=== PATIENT | female | born 1970 | race Caucasian/White ===

== ENCOUNTER 2016-06-16 18:47 | Inpatient (IN) ==
[2016-06-16] MEDS ORDERED: methylPREDNISolone 125 MG/2 ML VIAL IV ONE (20:00)
[2016-06-16] MEDS ORDERED: Ipratropium/Albuterol Neb 3 ML IH ONE (20:00)
--- NOTE | 2016-06-16 20:03 | Emergency Department Note ---
Disposition Clinical Impression: Acute exacerbation of chronic obstructive airways disease Respiratory failure with hypoxia Qualifiers: Chronicity: acute Qualified Code(s): J96.01 - Acute respiratory failure with hypoxia Disposition: Admitted As Inpatient Condition: Good Referrals: Nhi Sexton CNP [Primary Care Provider] - Forms: ED Satisfaction Letter URI/Sore Throat HPI - General Chief Complaint: ED Shortness of Breath/Dyspnea Stated Complaint: JONATHNO Time Seen by Provider: 06/16/16 19:37 Source: patient Limitations: no limitations Nursing Notes Reviewed: Yes Vital Signs Reviewed: Yes - History of Present Illness Pt Subjective Complaint: cough Onset (ago): day(s) (4) Duration: constant, gradually worsening Severity: mild Improves with: other (Inhaler) Worsens with: exertion If sputum, description: clear (Cough) Associated symptoms: Reports: nasal congestion, shortness of breath. Denies: fever, chills Treatments prior to arrival: other healthcare encounter for this problem - Related Data Previous Rx's Medication Instructions Recorded HydrOXYzine Pamoate [Vistaril] 25 mg PO Q6HR PRN #20 capsule 10/27/15 HYDROcodone/Acet 5/325 mg [[place] 1 tab PO Q6H PRN #8 tab 02/09/16 5-325 mg] Allergies Allergy/AdvReac Type Severity Reaction Status Date / Time Enoxaparin [From Lovenox] Allergy Hives Verified 06/16/16 19:32 Varenicline [From Chantix] AdvReac Hallucinati Verified 06/16/16 19:32 ng All systems ED: reviewed and negative except as stated. Constitutional: Denies: fever, chills, weakness Cardiovascular: Denies: palpitations Gastrointestinal: Denies: nausea, vomiting URI PMH - Past Medical History Medical history: Reports: COPD, fibromyalgia, other Psychiatric history: Reports: anxiety, depression - Social History Smoking Status: Current every day smoker Alcohol use: Reports: rarely Drug use: Reports: marijuana Physical Exam - General Limitations: no limitations General appearance: alert - Head Head exam: atraumatic, normocephalic, normal inspection - Eye Eye exam: Present: normal appearance, PERRL, EOMI - Expanded Eye Exam Pupils: Left: reactive - ENT ENT exam: normal exam, normal oropharynx, mucous membranes moist - Expanded ENT Exam External ear exam: Present: normal external inspection Mouth exam: Present: normal external inspection Teeth exam: Present: normal inspection Throat exam: Present: normal inspection - Neck Neck exam: Present: normal inspection, full ROM, trachea midline - Chest Chest inspection: Present: normal inspection, symmetric chest wall rise - Respiratory Respiratory exam: Present: wheezes, prolonged expiratory phase. Absent: respiratory distress - Cardiovascular Cardiovascular exam: Present: regular rate, normal rhythm, normal heart sounds - Abdominal Exam Abdominal exam: Present: soft, Non-Tender. Absent: tenderness, distention, guarding, rebound, rigidity - Extremities Exam Extremities exam: Present: normal inspection, full ROM. Absent: tenderness, pedal edema - Expanded Upper Extremity Exam Shoulder exam: Present: normal inspection, full ROM Arm exam: Present: normal inspection, full ROM Elbow exam: Present: normal inspection, full ROM Forearm/Wrist exam: Present: normal inspection, full ROM Hand exam: Present: normal inspection, full ROM Vascular exam: Normal: capillary refill, radial pulse - Expanded Lower Extremity Exam Hip/Pelvis exam: Present: normal inspection, full ROM Upper leg exam: Present: normal inspection, full ROM Knee exam: Present: normal inspection, full ROM Lower leg exam: Present: normal inspection, full ROM Ankle exam: Present: normal inspection, full ROM Foot/toe exam: Present: normal inspection, full ROM Neurovascular/Tendon exam: Absent: motor deficit, sensory deficit, tendon deficit - Back Exam Back exam: Present: normal inspection, full ROM. Absent: tenderness - Neurological Exam Neurological exam: Present: alert, oriented X3 - Expanded Neurological Exam Patient oriented to: Present: person, place, time Coma Scale Eye Opening: Spontaneous Coma Scale Motor Response: Obeys Commands Coma Scale Verbal Response: Oriented Coma Scale Total: 15 - Psychiatric Psychiatric exam: Present: normal affect, normal mood - Skin Skin exam: Present: warm, dry, intact, normal color Course Vital Signs Temperature 100.2 F H 06/16/16 19:33 Pulse Rate 103 06/16/16 19:33 Respiratory Rate 20 06/16/16 19:33 Blood Pressure 110/66 06/16/16 19:33 O2 Sat by Pulse Oximetry 94 L 06/16/16 19:33 Temperature 100.2 F H 06/16/16 19:33 Pulse Rate 103 06/16/16 19:33 Respiratory Rate 20 06/16/16 20:16 Blood Pressure 110/66 06/16/16 19:33 O2 Sat by Pulse Oximetry 92 L 06/16/16 20:16 Oxygen Delivery Oxygen Delivery Room Air Upper Respiratory Infection - MDM Narrative Medical decision making narrative: After 2 DuoNeb this patient still hypoxic on room air 88% she does not feel well enough to go home we will admit her to the hospitalist service - Differential Diagnosis Differential Diagnosis: Likely: upper respiratory infection, otitis media, sinusitis, bronchitis, influenza, pharyngitis, pneumonia - Medical Records Medical records reviewed: Yes I reviewed the patient's medical records. - Lab Data Lab results reviewed: Yes I reviewed the patient's lab results. Result diagrams: 06/16/16 20:14 06/16/16 20:14 Lab Results 06/16/16 06/16/16 06/16/16 Range/Units 20:14 20:14 20:14 WBC 7.8 (4.3-11.1) K/mcL RBC 4.87 (3.82-4.97) M/mcL Hgb 11.7 (11.5-15.4) g/dL Hct 38.1 (35.3-44.9) % MCV 78.2 L (83.0-100.0) fL MCH 24.0 L (28.0-33.3) pg MCHC 30.7 L (31.6-35.5) g/dL RDW 24.3 H (11.5-14.5) % Plt Count 240 (140-400) K/mcL MPV 9.7 (9.4-12.4) fL Immature Gran % 0.5 (0-4) % Seg Neutrophils % 58.0 % Lymphocytes % 29.8 % Monocytes % 10.3 % Eosinophils % 1.0 % Basophils % 0.4 % Neutrophils # 4.5 (1.6-8.9) K/mcL Lymphocytes # 2.3 (0.6-4.6) K/mcL Monocytes # 0.8 (0.0-1.3) K/mcL Eosinophils # 0.1 (0.0-0.6) K/mcL Basophils # 0.0 (0.0-0.2) K/mcL Platelet Estimate Normal (Normal) Anisocytosis 2+ A (Not Present) Sodium 135 L (136-145) mEq/L Potassium 4.1 (3.5-4.5) mEq/L Chloride 101 (98-109) mEq/L Carbon Dioxide 24 (19-29) mEq/L BUN 13 (7-20) mg/dL Creatinine 0.68 (0.57-1.11) mg/dL Est GFR ( Amer) > 60 (> 60) Est GFR (Non-Af Amer) > 60 (> 60) BUN/Creatinine Ratio 19 (6-26) Glucose 91 (70-99) mg/dL Calculated Osmolality 280 (280-300) Calcium 8.8 (8.6-10.8) mg/dL Troponin I 0.00 (0-0.03) ng/mL B-Natriuretic Peptide (0-100) pg/mL 06/16/16 Range/Units 20:14 WBC (4.3-11.1) K/mcL RBC (3.82-4.97) M/mcL Hgb (11.5-15.4) g/dL Hct (35.3-44.9) % MCV (83.0-100.0) fL MCH (28.0-33.3) pg MCHC (31.6-35.5) g/dL RDW (11.5-14.5) % Plt Count (140-400) K/mcL MPV (9.4-12.4) fL Immature Gran % (0-4) % Seg Neutrophils % % Lymphocytes % % Monocytes % % Eosinophils % % Basophils % % Neutrophils # (1.6-8.9) K/mcL Lymphocytes # (0.6-4.6) K/mcL Monocytes # (0.0-1.3) K/mcL Eosinophils # (0.0-0.6) K/mcL Basophils # (0.0-0.2) K/mcL Platelet Estimate (Normal) Anisocytosis (Not Present) Sodium (136-145) mEq/L Potassium (3.5-4.5) mEq/L Chloride (98-109) mEq/L Carbon Dioxide (19-29) mEq/L BUN (7-20) mg/dL Creatinine (0.57-1.11) mg/dL Est GFR ( Amer) (> 60) Est GFR (Non-Af Amer) (> 60) BUN/Creatinine Ratio (6-26) Glucose (70-99) mg/dL Calculated Osmolality (280-300) Calcium (8.6-10.8) mg/dL Troponin I (0-0.03) ng/mL B-Natriuretic Peptide < 10 (0-100) pg/mL - Radiology Data Radiology results reviewed: Yes I reviewed the patient's radiology results. Critical Care Time Critical Care Time: Yes Total Critical Care Time: 35 Attestation: Critical care performed: Time is exclusive of separately billable procedures. Time includes: direct patient care, patient reassessment, coordination of patient care, interpretation of data (laboratory data, radiology data, and respiratory data), review of patient's medical records, medical consultation and documentation of patient care. Procedures included in critical care time: Procedures excluded from critical care time:
[2016-06-16 20:20] LABS: Basophils % 0.4 %; Eosinophils # 0.1 K/mcL (0.0-0.6); Hematocrit 38.1 % (35.3-44.9); Hemoglobin 11.7 g/dL (11.5-15.4); Immature Granulocytes % 0.5 % (0-4); Lymphocytes # 2.3 K/mcL (0.6-4.6); Lymphocytes % 29.8 %; Mean Corpuscular HGB Conc 30.7 g/dL (31.6-35.5); Mean Corpuscular Volume 78.2 fL (83.0-100.0); Mean Platelet Volume 9.7 fL (9.4-12.4); Monocytes # 0.8 K/mcL (0.0-1.3); Monocytes % 10.3 %; Neutrophils # 4.5 K/mcL (1.6-8.9); Platelet Count 240 K/mcL (140-400); Red Blood Count 4.87 M/mcL (3.82-4.97); Red Cell Distribution Width 24.3 % (11.5-14.5)
[2016-06-16 20:32] LABS: BUN/Creatinine Ratio 19 (6-26); Blood Urea Nitrogen 13 mg/dL (7-20); Calcium 8.8 mg/dL (8.6-10.8); Carbon Dioxide 24 mEq/L (19-29); Chloride 101 mEq/L (98-109); Glucose 91 mg/dL (70-99); Osmolality,Calculated 280 (280-300); Potassium 4.1 mEq/L (3.5-4.5); Sodium 135 mEq/L (136-145); eGFR For African Americans > 60 (> 60); eGFR For Non-African Americans > 60 (> 60)
[2016-06-16 20:47] LABS: Anisocytosis 2+ (Not Present); Platelet Estimate Normal (Normal)
[2016-06-16] MEDS ORDERED: Levofloxacin 750 MG/150 ML 750 MG/150 ML BAG IVPB ONE (21:10)
[2016-06-17] MEDS ORDERED: Acetaminophen 325 MG TABLET PO PRN (00:13)
[2016-06-17] MEDS ORDERED: Ondansetron ODT 4 MG TAB.RAPDIS SL PRN (00:13)
[2016-06-17] MEDS ORDERED: Naloxone 0.4 MG/ML INJ IVP PRN (00:13)
[2016-06-17] MEDS ORDERED: Ipratropium/Albuterol Neb 3 ML IH PRN (00:16)
--- NOTE | 2016-06-17 00:26 | Internal Med History&Physical ---
<Lily Timmons - Last Filed: 06/17/16 01:23> Date of Encounter: 06/17/16 Time of Encounter: 00:40 Assessment and Plan (1) Acute exacerbation of chronic obstructive airways disease Current visit: Yes Status: Acute duonebs IV steroids IV antibiotics supplemental O2 (2) Respiratory failure with hypoxia Current visit: Yes Status: Acute patient does not use supplemental home oxygen Qualifiers: Chronicity: acute Qualified Code(s): J96.01 - Acute respiratory failure with hypoxia (3) Tobacco abuse, in remission Current visit: Yes Status: Acute quit smoking at the end of April (states has not smoked this month) 21 mg nicotine patch (4) Anxiety Current visit: Yes Status: Acute continue home medications (5) Depression Current visit: Yes Status: Acute continue home medications Qualifiers: Depression Type: unspecified Qualified Code(s): F32.9 - Major depressive disorder, single episode, unspecified Internal Medicine - H&P: HPI Chief complaint: shortness of breath Admitted From: Emergency Dept Plans for Post Hospital Care: Home History of present illness: Ms. Duenas is a 45 year old female past medical history anxiety, depression, fibromyalgia, and COPD who presents with a three-day history of increasing shortness of breath. She had a nonproductive cough, chest tightness/pain, and coughing to the point of blacking out/syncope. She also admits to increased fatigue, dyspnea, anorexia/nausea/upset stomach, sore throat, and polyuria. She recently quit smoking the beginning of May: she currently is using the 21 mg nicotine patch. Past Med Surg Social Fam HX - Past Medical History Medical history: COPD, fibromyalgia, other (osteopenia) Psychiatric history: anxiety, depression - Past Surgical History Surgical History: hysterectomy, knee replacement (bilateral), orthopedic, other (right arm), other (discectomy) - Social History Smoking Status: Former smoker (very recent quit (< 1 month ago)) Smokeless Tobacco Status: No Alcohol use: rarely Drug use: marijuana Internal Medicine - H&P: Meds Albuterol Sulfate [Ventolin Hfa] 2 puff IH Q4-6H PRN 06/16/16 [History] Budesonide/Formoterol 160/4.5 [Symbicort 160/4.5] 2 puff IH BIDR 06/16/16 [ History] Cholecalciferol (D-3) [Vitamin D] 2,000 unit PO DAILY 06/16/16 [History] ClonazePAM [Klonopin] 1 mg PO TID PRN 06/16/16 [History] Dexlansoprazole [Dexilant] 60 mg PO DAILY 06/16/16 [History] Dicyclomine [Bentyl] 40 mg PO QID 06/16/16 [History] Ibuprofen [Motrin] 400 mg PO Q6H PRN 06/16/16 [History] Ipratropium/Albuterol Neb [Duoneb] 3 ml IH Q6H PRN 06/16/16 [History] Magnesium Oxide [Mag-Ox] 400 mg PO BID 06/16/16 [History] Methocarbamol [Robaxin] 1,000 mg PO QID PRN 06/16/16 [History] Nicotine Patch [Nicoderm] 21 mg TD DAILY 06/16/16 [History] Oxcarbazepine 300 mg PO QAM 06/16/16 [History] Oxcarbazepine 600 mg PO HS 06/16/16 [History] Pregabalin [Lyrica] 75 mg PO BID 06/16/16 [History] Trazodone HCl 50 mg PO HS PRN 06/16/16 [History] Venlafaxine HCl [Venlafaxine HCl ER] 75 mg PO DAILY 06/16/16 [History] Ferrous Sulfate 325 mg PO BID 06/17/16 [History] Allergies Enoxaparin [From Lovenox] Allergy (Verified 06/16/16 19:32) Hives Varenicline [From Chantix] Adverse Reaction (Verified 06/16/16 19:32) Hallucinating All Systems PM: A 10-system review of systems was performed and is negative for pertinent findings except as documented above in the HPI. - Constitutional Constitutional: fatigue, lethargy, no chills, no fever(s), no night sweats - EENT Eyes: blurry vision (x months), no change in vision, no discharge, no pain, no photophobia Ears: no ear discharge, no ear pain, no tinnitus Nose, mouth and throat: nasal congestion, sore throat, no dysphagia, no nasal discharge, no neck pain - Cardiovascular Cardiovascular ROS IM: chest pain (/chest tightness), syncope, no diaphoresis, no dyspnea, no lightheadedness, no palpitations - Respiratory Respiratory: cough, dyspnea, dyspnea on exertion, wheezing, no excessive phlegm production - Gastrointestinal Gastrointestinal: abdominal pain, other (upset stomach), no diarrhea, no hematemesis, no hematochezia, no melena, no nausea, no vomiting - Genitourinary Genitourinary: nocturia, urinary frequency, no change in urinary stream, no dysuria, no flank pain, no hematuria - Musculoskeletal Musculoskeletal ROS IM: muscle cramps, muscle weakness, no numbness, no tingling - Integumentary Integumentary IM: no rash, no unusual bruising - Neurological Neurological ROS: no confusion, no convulsions, no focal weakness, no numbness, no tingling, no tremor(s) - Psychiatric Psychiatric: anxiety ( chronic), depression (chronic), memory loss (chronic), mood swings (chronic), panic attacks (chronic) - Hematologic/Lymphatic Hematologic/Lymphatic: no easy bruising - Constitutional Vitals: Temp Pulse Resp BP Pulse Ox 97.8 F 98 18 116/68 94 L 06/16/16 23:34 06/16/16 23:34 06/16/16 23:34 06/16/16 23:34 06/16/16 23:34 General appearance: Present: A&O X 3, no acute distress, answers questions appropriately - Head Head exam: Present: atraumatic, normocephalic - Eye Eye exam: Present: PERRL, conjuntiva pink, sclera anicteric Pupils: Present: PERRL - Neck Neck exam general surgery: Present: supple, trachea midline. Absent: lymphadenopathy - Respiratory Respiratory exam: Present: decreased breath sounds (lungs sound tight), prolonged expiratory phase, wheezes (end expiratory wheezes throughout). Absent : accessory muscle use, rales, rhonchi - Cardiovascular Cardiovascular exam: Present: RRR, +S1, +S2. Absent: diastolic murmur, gallop, rubs, systolic murmur - GI/Abdominal GI/Abdominal exam: Present: normal bowel sounds, soft, no peritoneal signs. Absent: distended, tenderness - Extremities Exam Extremities exam: Present: warm, radial pulses palpable and symetrical. Absent : calf tenderness, cyanotic, pedal edema - Neurological Exam Neurological exam: Present: CN II-XII intact, oriented X3, no focal deficits. Absent: pronater drift, facial droop, speech deficit - Skin Skin exam: Present: dry, intact Internal Med - H&P Results - Labs CBC & Chem 7: 06/16/16 20:14 06/16/16 20:14 <Brigette Sanchez Braden - Last Filed: 06/17/16 04:23> Date of Encounter: 06/17/16 Internal Medicine - H&P: HPI History of present illness: Ms. Duenas is a 45 year old female All Systems PM: A 10-system review of systems was performed and is negative for pertinent findings except as documented above in the HPI. - Constitutional Vitals: Temp Pulse Resp BP Pulse Ox 97.8 F 98 18 116/68 92 L 06/16/16 23:34 06/16/16 23:34 06/17/16 00:40 06/16/16 23:34 06/17/16 00:40 Internal Med - H&P Results - Labs CBC & Chem 7: 06/16/16 20:14 06/16/16 20:14 - Attending Attestation I performed a history and physical examination of the patient and discussed his management with the Resident/Ragman (Dr Timmons). I reviewed the residents note and agree with the documented findings and plan of care, with additions as below. 45-year-old female with a past medical history significant for COPD presents with a 2 day history of shortness of breath. She has saturations about 88% on room air in the emergency department. She reports that there is black moulds and she thinks there is problem with the duct, where she need to change the filters every 2 weeks. Apparently her land-lord was not willing to fix the problem. She thinks that if she is at her brothers house in [place] she feels better. After coming to her home, within 2 to 3 days she feels sick. O/E: Occasional bilateral wheeze present. CXR showed no acute abnormality. A/P: - Acute exacerbation of COPD: Continue with bronchodilators, levofloxacin, Solu-Medrol, Mucinex. May need f/u with pulmonary physician for lung function test and possible pulmonary rehab. - Acute respiratory failure: Secondary to acute exacerbation of COPD. Continue supplemental oxygen. She will need resting and walking pulse ox prior to discharge.
[2016-06-17] MEDS: Ipratropium/Albuterol Neb 3 ML IH SCH ×5 (00:40→21:03)
[2016-06-17] MEDS: OXcarbazepine 150 MG TABLET PO SCH ×3 (01:19→21:05)
[2016-06-17] MEDS: Pregabalin 75 MG CAPSULE PO SCH ×3 (01:19→21:06)
[2016-06-17] MEDS: traZODone 50 MG TABLET PO PRN (01:20)
[2016-06-17] MEDS: Methocarbamol 500 MG TABLET PO PRN (01:20)
[2016-06-17] MEDS: methylPREDNISolone 125 MG/2 ML VIAL IVP SCH ×2 (06:49→17:44)
[2016-06-17] MEDS: *HR* Heparin 5,000 UNIT/ML VIAL SQ SCH ×2 (06:49→17:43)
[2016-06-17] MEDS: Nicotine 21 MG PATCH.TD24 TD SCH (09:27)
[2016-06-17] MEDS: Venlafaxine XR (24 HR) 75 MG CAP.ER.24H PO SCH (09:28)
[2016-06-17] MEDS: Magnesium Oxide 400 MG TABLET PO SCH ×2 (09:28→21:06)
[2016-06-17] MEDS: clonazePAM 1 MG TABLET PO PRN ×2 (09:34→21:05)
[2016-06-17] MEDS: Budesonide/Formoterol 160/4.5 MDI IH SCH ×3 (10:05→21:33)
[2016-06-17] MEDS: *HR* HYDROcodone/Acet 5/325 mg TABLET PO PRN ×2 (13:15→21:10)
--- NOTE | 2016-06-17 18:36 | Event Note ---
Date of Encounter: 06/17/16 Time of Encounter: 18:00 45 y/o female admitted during the night for acute exac COPD. She is doing OK at this time. No acute issues. Plan Continue IV abx, steroids, supportive care.
[2016-06-17] MEDS ORDERED: Levofloxacin 750 MG/150 ML 750 MG/150 ML BAG IVPB SCH (21:00)
[2016-06-17] MEDS: levoFLOXacin 750 MG TABLET PO SCH (21:06)
[2016-06-17] MEDS ORDERED: Nicotine 21 MG PATCH.TD24 TD ONE (23:50)
[2016-06-18] MEDS: Ipratropium/Albuterol Neb 3 ML IH SCH ×4 (04:23→21:25)
[2016-06-18] MEDS: *HR* HYDROcodone/Acet 5/325 mg TABLET PO PRN ×3 (04:36→22:13)
[2016-06-18] MEDS: methylPREDNISolone 125 MG/2 ML VIAL IVP SCH (06:40)
[2016-06-18] MEDS: *HR* Heparin 5,000 UNIT/ML VIAL SQ SCH ×2 (06:41→19:05)
[2016-06-18] MEDS: Pregabalin 75 MG CAPSULE PO SCH ×2 (09:19→21:57)
[2016-06-18] MEDS: Venlafaxine XR (24 HR) 75 MG CAP.ER.24H PO SCH (09:19)
[2016-06-18] MEDS: Magnesium Oxide 400 MG TABLET PO SCH ×2 (09:19→21:57)
[2016-06-18] MEDS: OXcarbazepine 150 MG TABLET PO SCH ×2 (09:19→21:56)
[2016-06-18] MEDS: Nicotine 21 MG PATCH.TD24 TD SCH (09:20)
[2016-06-18] MEDS: clonazePAM 1 MG TABLET PO PRN ×2 (09:28→14:15)
[2016-06-18] MEDS: Budesonide/Formoterol 160/4.5 MDI IH SCH ×2 (09:38→21:25)
[2016-06-18] MEDS: MethylPREDNISolone 40 MG/ML VIAL IVP SCH ×2 (14:23→19:05)
--- NOTE | 2016-06-18 18:19 | Internal Med Progress Note ---
Date of Encounter: 06/18/16 Time of Encounter: 12:45 - Assessment and plan (1) Respiratory failure with hypoxia Current Visit: Yes Status: Acute Assessment and plan: Hypoxia is persisting at this time. Will wean oxygen as able. Qualifiers: Chronicity: acute Qualified Code(s): J96.01 - Acute respiratory failure with hypoxia (2) Acute exacerbation of chronic obstructive airways disease Current Visit: Yes Status: Acute Assessment and plan: Currently on aerosols, abx and steroids. Add Mucinex and changing steroids to q6h. (3) Anxiety Current Visit: Yes Status: Acute Assessment and plan: Supportive care. She takes PRN Clonazepam. (4) Depression Current Visit: Yes Status: Chronic Assessment and plan: Continue home meds. Qualifiers: Depression Type: unspecified Qualified Code(s): F32.9 - Major depressive disorder, single episode, unspecified (5) Tobacco abuse, in remission Current Visit: Yes Status: Acute Assessment and plan: Supportive care. (6) Obesity (BMI 30.0-34.9) Current Visit: Yes Status: Acute - Subjective Interval history: Ms. Duenas is currently admitted for acute exac COPD and hypoxemia. She remains moderate to high risk due to persistent respiratory symptoms and potential for worsening respiratory failure. Ms. Duenas is still having a lot of dyspnea. She is having some discomfort in her chest with coughing. No fever or chills. Using aerosols and steroids but feels like things are not improving. Very anxious and feels stressed as well. Concerned about her house and air quality. - Constitutional Vitals: Temp Pulse Resp BP Pulse Ox 98.2 F 85 18 106/66 92 L 06/18/16 15:02 06/18/16 15:02 06/18/16 16:02 06/18/16 15:02 06/18/16 16:02 General appearance: Present: A&O X 3, no acute distress, answers questions appropriately - Head Head exam: Present: normocephalic - Eye Eye exam: Present: EOMI, conjuntiva pink - ENT ENT exam: Present: mucous membranes dry - Respiratory Respiratory exam: Present: rales. Absent: rhonchi, wheezes Additional comments: Rales noted in R base. - Cardiovascular Cardiovascular exam: Present: RRR. Absent: systolic murmur, tachycardia - GI/Abdominal GI/Abdominal exam: Present: normal bowel sounds, soft. Absent: tenderness - Extremities Exam Extremities exam: Present: warm. Absent: pedal edema, tenderness - Neurological Exam Neurological exam: Present: alert, oriented X3, no focal deficits - Psychiatric Psychiatric exam: Present: depressed - Skin Skin exam: Present: dry, warm. Absent: rash Internal Medicine: Result - Labs CBC & Chem 7: 06/16/16 20:14 06/16/16 20:14 Consult Discharge Plan - Plan Referrals: Nhi Sexton CNP [Primary Care Provider] -
[2016-06-18] MEDS: Methocarbamol 500 MG TABLET PO PRN (19:05)
[2016-06-18] MEDS: levoFLOXacin 750 MG TABLET PO SCH (21:57)
[2016-06-19] MEDS: MethylPREDNISolone 40 MG/ML VIAL IVP SCH ×4 (01:46→19:50)
[2016-06-19] MEDS: *HR* Morphine 2 MG/ML SYRINGE IVP PRN ×6 (02:11→19:48)
[2016-06-19] MEDS: Ipratropium/Albuterol Neb 3 ML IH SCH ×4 (03:53→23:44)
[2016-06-19] MEDS: *HR* HYDROcodone/Acet 5/325 mg TABLET PO PRN ×3 (04:14→17:59)
[2016-06-19 05:29] LABS: Hematocrit 39.3 % (35.3-44.9); Hemoglobin 12.2 g/dL (11.5-15.4); Mean Corpuscular Hemoglobin 24.8 pg (28.0-33.3); Mean Platelet Volume 10.3 fL (9.4-12.4); Platelet Count 253 K/mcL (140-400); Red Blood Count 4.91 M/mcL (3.82-4.97); Red Cell Distribution Width 24.5 % (11.5-14.5)
[2016-06-19 05:46] LABS: BUN/Creatinine Ratio 29 (6-26); Blood Urea Nitrogen 20 mg/dL (7-20); Calcium 9.6 mg/dL (8.6-10.8); Carbon Dioxide 26 mEq/L (19-29); Chloride 100 mEq/L (98-109); Glucose 117 mg/dL (70-99); Magnesium 2.4 mg/dL (1.6-2.6); Osmolality,Calculated 292 (280-300); Potassium 4.2 mEq/L (3.5-4.5); Sodium 139 mEq/L (136-145); eGFR For African Americans > 60 (> 60); eGFR For Non-African Americans > 60 (> 60)
[2016-06-19] MEDS: *HR* Heparin 5,000 UNIT/ML VIAL SQ SCH ×2 (06:49→17:59)
--- NOTE | 2016-06-19 06:54 | Electrocardiograph Report ---
[place] [id number] Test Date: 2016-06-16 Pat Name: Josette Duenas Department: 104 Room: 3B Gender: F Public Health Inspector: : 1970 Requested By: Pacheco Escobedo Order Number: [id number] Reading MD: Maycol Hernandez MD Measurements Intervals [place] Rate: 94 P: 56 [place]: 141 QRS: 53 QRSD: 91 T: 47 QT: 330 QTc: 382 Interpretive Statements SINUS RHYTHM Electronically Signed On 06-19-2016 6:52:23 EST by Maycol Hernandez MD
[2016-06-19] MEDS: clonazePAM 1 MG TABLET PO PRN ×2 (07:29→18:06)
[2016-06-19] MEDS: Venlafaxine XR (24 HR) 75 MG CAP.ER.24H PO SCH (08:16)
[2016-06-19] MEDS: OXcarbazepine 150 MG TABLET PO SCH ×2 (08:16→19:49)
[2016-06-19] MEDS: Nicotine 21 MG PATCH.TD24 TD SCH (08:17)
[2016-06-19] MEDS: Magnesium Oxide 400 MG TABLET PO SCH ×2 (08:17→19:50)
[2016-06-19] MEDS: Pregabalin 75 MG CAPSULE PO SCH ×2 (08:17→19:49)
[2016-06-19] MEDS: Budesonide/Formoterol 160/4.5 MDI IH SCH ×2 (10:44→23:44)
--- NOTE | 2016-06-19 19:48 | Internal Med Progress Note ---
Date of Encounter: 06/19/16 Time of Encounter: 14:30 - Assessment and plan (1) Abdominal pain Current Visit: Yes Status: Acute Assessment and plan: Appears to be muscular - worse with coughing. PRN meds. Qualifiers: Abdominal location: right lower quadrant Qualified Code(s): R10.31 - Right lower quadrant pain (2) Respiratory failure with hypoxia Current Visit: Yes Status: Acute Assessment and plan: Starting to improve overall though slowly. Wean oxygen as able. Qualifiers: Chronicity: acute Qualified Code(s): J96.01 - Acute respiratory failure with hypoxia (3) Acute exacerbation of chronic obstructive airways disease Current Visit: Yes Status: Acute Assessment and plan: Currently on aerosols, abx and steroids. Cough suppressant added. Wean as able. (4) Anxiety Current Visit: Yes Status: Acute Assessment and plan: Supportive care. She takes PRN Clonazepam. (5) Depression Current Visit: Yes Status: Chronic Assessment and plan: Continue home meds. Qualifiers: Depression Type: unspecified Qualified Code(s): F32.9 - Major depressive disorder, single episode, unspecified (6) Tobacco abuse, in remission Current Visit: Yes Status: Acute Assessment and plan: Supportive care. (7) Obesity (BMI 30.0-34.9) Current Visit: Yes Status: Acute (8) Intertrigo Current Visit: Yes Status: Acute Assessment and plan: Nystatin cream - Subjective Interval history: Ms. Duenas is currently admitted for acute exac COPD and hypoxemia. She remains moderate to high risk due to persistent respiratory symptoms and potential for worsening respiratory failure. Ms. Duenas is coughing a lot and has developed pain in her lower abdomen. It is sharp with coughing and "feels like an alien is coming out of me." CT is negative for acute process. No fever or chills. No diarrhea. Bowels not moving much. She has concerns about her living status at home. - Constitutional Vitals: Temp Pulse Resp BP Pulse Ox 98.2 F 77 14 128/76 93 L 06/19/16 18:29 06/19/16 18:29 06/19/16 18:29 06/19/16 18:29 06/19/16 18:29 General appearance: Present: A&O X 3, no acute distress, answers questions appropriately - Head Head exam: Present: normocephalic - Eye Eye exam: Present: conjuntiva pink - ENT ENT exam: Present: mucous membranes dry - Respiratory Respiratory exam: Present: decreased breath sounds, rales, wheezes - Cardiovascular Cardiovascular exam: Present: RRR. Absent: tachycardia - GI/Abdominal GI/Abdominal exam: Present: soft, tenderness Additional comments: Tender to palpation of lower right abdominal musculature. - Extremities Exam Extremities exam: Present: warm. Absent: pedal edema, tenderness - Neurological Exam Neurological exam: Present: alert, oriented X3, no focal deficits - Psychiatric Psychiatric exam: Present: normal affect, normal mood - Skin Skin exam: Present: erythema, warm Additional comments: Erythema in lower skin fold on abdomen. Internal Medicine: Result - Labs CBC & Chem 7: 06/19/16 04:45 06/19/16 04:45 Labs: Short CBC 06/19/16 Range/Units 04:45 WBC 11.4 H (4.3-11.1) K/mcL Hgb 12.2 (11.5-15.4) g/dL Hct 39.3 (35.3-44.9) % Plt Count 253 (140-400) K/mcL BMP 06/19/16 04:45 Sodium 139 Potassium 4.2 Chloride 100 Carbon Dioxide 26 BUN 20 Creatinine 0.68 Glucose 117 H Calcium 9.6 - Impressions Impressions Chest/Abdomen X-ray 06/19/16 04:06 IMPRESSION: Negative chest Nonobstructing bowel gas pattern D/ / 06/19/2016 07:41:35 Donald Chaves MD / krupa Interpreting Provider: Donald Chaves MD Chest X-Ray 06/19/16 06:00 IMPRESSION: Left upper lung subsegmental atelectasis. Small left pleural effusion. D/ / Mandie Maguire Cha, MD / Mandie Maguire Cha, MD Interpreting Provider: Mandie Maguire Cha, MD Abdomen CT 06/19/16 12:00 IMPRESSION: 1. No acute finding in the abdomen to account for patient's pain. D/ / 06/19/2016 15:25:30 Nito Rajan MD / Haritha Lay Interpreting Provider: Nito Rajan MD Consult Discharge Plan - Plan Referrals: Nhi Sexton CNP [Primary Care Provider] - 06/26/16 9:45 am
[2016-06-19] MEDS: levoFLOXacin 750 MG TABLET PO SCH (19:49)
[2016-06-19] MEDS: Benzonatate 100 MG CAPSULE PO PRN (20:16)
[2016-06-19] MEDS: Nystatin Cream 15 GM TUBE TP SCH (21:06)
[2016-06-20] MEDS: *HR* HYDROcodone/Acet 5/325 mg TABLET PO PRN ×5 (00:26→22:05)
[2016-06-20] MEDS: clonazePAM 1 MG TABLET PO PRN ×2 (00:27→15:01)
[2016-06-20] MEDS: *HR* Morphine 2 MG/ML SYRINGE IVP PRN ×2 (01:33→06:31)
[2016-06-20] MEDS: MethylPREDNISolone 40 MG/ML VIAL IVP SCH ×4 (03:39→22:06)
[2016-06-20] MEDS: traZODone 50 MG TABLET PO PRN ×2 (03:50→22:52)
[2016-06-20 04:24] LABS: Hematocrit 40.1 % (35.3-44.9); Hemoglobin 12.4 g/dL (11.5-15.4); Mean Corpuscular HGB Conc 30.9 g/dL (31.6-35.5); Mean Corpuscular Hemoglobin 24.8 pg (28.0-33.3); Mean Platelet Volume 10.1 fL (9.4-12.4); Platelet Count 233 K/mcL (140-400); Red Blood Count 5.01 M/mcL (3.82-4.97); Red Cell Distribution Width 24.4 % (11.5-14.5)
[2016-06-20] MEDS: Ipratropium/Albuterol Neb 3 ML IH SCH ×4 (04:44→22:04)
[2016-06-20 04:45] LABS: BUN/Creatinine Ratio 29 (6-26); Blood Urea Nitrogen 20 mg/dL (7-20); Calcium 9.3 mg/dL (8.6-10.8); Carbon Dioxide 25 mEq/L (19-29); Chloride 100 mEq/L (98-109); Glucose 172 mg/dL (70-99); Osmolality,Calculated 293 (280-300); Potassium 4.1 mEq/L (3.5-4.5); Sodium 138 mEq/L (136-145); eGFR For African Americans > 60 (> 60); eGFR For Non-African Americans > 60 (> 60)
[2016-06-20] MEDS: *HR* Heparin 5,000 UNIT/ML VIAL SQ SCH ×2 (06:31→17:42)
[2016-06-20] MEDS: OXcarbazepine 150 MG TABLET PO SCH ×2 (08:29→20:29)
[2016-06-20] MEDS: Magnesium Oxide 400 MG TABLET PO SCH ×2 (08:29→20:29)
[2016-06-20] MEDS: Pregabalin 75 MG CAPSULE PO SCH ×2 (08:29→20:30)
[2016-06-20] MEDS: Venlafaxine XR (24 HR) 75 MG CAP.ER.24H PO SCH (08:29)
[2016-06-20] MEDS: Nicotine 21 MG PATCH.TD24 TD SCH (08:30)
[2016-06-20] MEDS: Nystatin Cream 15 GM TUBE TP SCH ×4 (08:31→20:30)
[2016-06-20] MEDS: Benzonatate 100 MG CAPSULE PO PRN ×2 (08:42→15:01)
[2016-06-20] MEDS: Methocarbamol 500 MG TABLET PO PRN ×2 (08:42→15:01)
[2016-06-20] MEDS: Budesonide/Formoterol 160/4.5 MDI IH SCH ×2 (11:21→22:05)
--- NOTE | 2016-06-20 13:52 | Internal Med Progress Note ---
Date of Encounter: 06/20/16 Time of Encounter: 13:50 - Assessment and plan (1) Respiratory failure with hypoxia Current Visit: Yes Status: Acute Assessment and plan: Starting to improve overall though slowly. Wean oxygen as able. Will obtain 6 minute walk test to see if patient qualifies for home oxygen Qualifiers: Chronicity: acute Qualified Code(s): J96.01 - Acute respiratory failure with hypoxia (2) Acute exacerbation of chronic obstructive airways disease Current Visit: Yes Status: Acute Assessment and plan: Titrate steroid therapy Continue bronchodilator support continue O2 supplementation as needed monitor O2 sat, goal O2 sat: 89-92% will obtain CT chest to r/o any lung pathology, patient reports of having exposure to mold and asbestosis at her house will obtain social services analyst consult for discharge planning. (3) Hyperglycemia Current Visit: Yes Status: Acute Assessment and plan: Likely secondary to steroid therapy will closely monitor f/u HbA1C in am (4) Abdominal pain Current Visit: Yes Status: Acute Assessment and plan: Likely musculoskeletal pain meds prn Qualifiers: Abdominal location: right lower quadrant Qualified Code(s): R10.31 - Right lower quadrant pain (5) Anxiety Current Visit: Yes Status: Acute Assessment and plan: Supportive care. She takes PRN Clonazepam. (6) Obesity (BMI 30.0-34.9) Current Visit: Yes Status: Chronic (7) Depression Current Visit: Yes Status: Chronic Assessment and plan: continue home medications Qualifiers: Depression Type: unspecified Qualified Code(s): F32.9 - Major depressive disorder, single episode, unspecified - Subjective Interval history: Patient seen and examined at bedside. Resting in bed and reports of severe lower abdominal pain with cough. As per nursing staff, patient is noted to be resting comfortably and saturating well on room air however continues to persistently complain about severe pain and difficulty breathing anytime any of the medical staff is in the patient's room. - Constitutional Vitals: Temp Pulse Resp BP Pulse Ox 98.0 F 79 15 117/66 92 L 06/20/16 12:18 06/20/16 12:18 06/20/16 12:18 06/20/16 12:18 06/20/16 12:18 General appearance: Present: A&O X 3, no acute distress, obese, answers questions appropriately - Head Head exam: Present: atraumatic, normocephalic - Eye Eye exam: Present: normal appearance, conjuntiva pink, sclera anicteric - Respiratory Respiratory exam: Present: wheezes (bilateral expiratory wheezing ). Absent: respiratory distress - Cardiovascular Cardiovascular exam: Present: RRR, +S1, +S2 - GI/Abdominal GI/Abdominal exam: Present: normal bowel sounds, soft, no peritoneal signs. Absent: distended, guarding, rebound, tenderness - Extremities Exam Extremities exam: Present: warm, radial pulses palpable and symetrical. Absent : calf tenderness, pedal edema, tenderness - Psychiatric Psychiatric exam: Present: normal affect, normal mood Internal Medicine: Result - Labs CBC & Chem 7: 06/20/16 03:46 06/20/16 03:46 Labs: Short CBC 06/20/16 Range/Units 03:46 WBC 8.7 (4.3-11.1) K/mcL Hgb 12.4 (11.5-15.4) g/dL Hct 40.1 (35.3-44.9) % Plt Count 233 (140-400) K/mcL BMP 06/20/16 03:46 Sodium 138 Potassium 4.1 Chloride 100 Carbon Dioxide 25 BUN 20 Creatinine 0.70 Glucose 172 H Calcium 9.3 - Impressions Impressions Abdomen CT 06/19/16 12:00 IMPRESSION: 1. No acute finding in the abdomen to account for patient's pain. D/ / 06/19/2016 15:25:30 Nito Rajan MD / [facility] Interpreting Provider: Nito Rajan MD Consult Discharge Plan - Plan Referrals: Nhi Sexton CNP [Primary Care Provider] - 06/26/16 9:45 am
[2016-06-20] MEDS: levoFLOXacin 750 MG TABLET PO SCH (20:30)
[2016-06-21] MEDS: *HR* HYDROcodone/Acet 5/325 mg TABLET PO PRN ×6 (02:15→23:14)
[2016-06-21] MEDS: clonazePAM 1 MG TABLET PO PRN ×2 (03:10→11:54)
[2016-06-21] MEDS: Ipratropium/Albuterol Neb 3 ML IH SCH ×4 (04:16→23:16)
[2016-06-21 05:12] LABS: Basophils % 0.1 %; Hematocrit 40.5 % (35.3-44.9); Hemoglobin 12.8 g/dL (11.5-15.4); Immature Granulocytes % 1.1 % (0-4); Lymphocytes # 1.9 K/mcL (0.6-4.6); Lymphocytes % 22.3 %; Mean Corpuscular HGB Conc 31.6 g/dL (31.6-35.5); Mean Corpuscular Volume 79.1 fL (83.0-100.0); Mean Platelet Volume 10.4 fL (9.4-12.4); Monocytes # 0.3 K/mcL (0.0-1.3); Monocytes % 3.6 %; Neutrophils # 6.1 K/mcL (1.6-8.9); Platelet Count 248 K/mcL (140-400); Red Blood Count 5.12 M/mcL (3.82-4.97); Red Cell Distribution Width 24.2 % (11.5-14.5); Segmented Neutrophils % 72.9 %
[2016-06-21 05:24] LABS: BUN/Creatinine Ratio 28 (6-26); Blood Urea Nitrogen 19 mg/dL (7-20); Calcium 9.2 mg/dL (8.6-10.8); Carbon Dioxide 27 mEq/L (19-29); Chloride 100 mEq/L (98-109); Glucose 144 mg/dL (70-99); Magnesium 2.4 mg/dL (1.6-2.6); Osmolality,Calculated 295 (280-300); Phosphorous 4.3 mg/dL (2.3-4.7); Potassium 4.4 mEq/L (3.5-4.5); Sodium 140 mEq/L (136-145); eGFR For African Americans > 60 (> 60); eGFR For Non-African Americans > 60 (> 60)
[2016-06-21 05:34] LABS: Hemoglobin A1C 5.4 %
[2016-06-21] MEDS: *HR* Heparin 5,000 UNIT/ML VIAL SQ SCH ×2 (06:17→18:02)
[2016-06-21] MEDS: MethylPREDNISolone 40 MG/ML VIAL IVP SCH ×3 (06:19→20:58)
[2016-06-21] MEDS: Pregabalin 75 MG CAPSULE PO SCH ×2 (09:10→20:54)
[2016-06-21] MEDS: Magnesium Oxide 400 MG TABLET PO SCH ×2 (09:10→20:54)
[2016-06-21] MEDS: Venlafaxine XR (24 HR) 75 MG CAP.ER.24H PO SCH (09:11)
[2016-06-21] MEDS: OXcarbazepine 150 MG TABLET PO SCH ×2 (09:11→20:55)
[2016-06-21] MEDS: Benzonatate 100 MG CAPSULE PO PRN ×2 (09:11→14:30)
[2016-06-21] MEDS: Nicotine 21 MG PATCH.TD24 TD SCH (09:11)
[2016-06-21] MEDS: Nystatin Cream 15 GM TUBE TP SCH ×3 (09:19→20:58)
[2016-06-21] MEDS: Budesonide/Formoterol 160/4.5 MDI IH SCH ×2 (10:38→23:16)
[2016-06-21] MEDS: Methocarbamol 500 MG TABLET PO PRN (14:29)
--- NOTE | 2016-06-21 14:41 | Internal Med Progress Note ---
Date of Encounter: 06/21/16 Time of Encounter: 14:39 - Assessment and plan (1) Respiratory failure with hypoxia Current Visit: Yes Status: Acute Assessment and plan: Starting to improve overall though slowly. Wean oxygen as able. Will obtain 6 minute walk test to see if patient qualifies for home oxygen Qualifiers: Chronicity: acute Qualified Code(s): J96.01 - Acute respiratory failure with hypoxia (2) Acute exacerbation of chronic obstructive airways disease Current Visit: Yes Status: Acute Assessment and plan: Titrate steroid therapy (changed to Solumedrol 40mg IV q12h) Continue bronchodilator support continue O2 supplementation as needed monitor O2 sat, goal O2 sat: 89-92% CT chest: No evidence of pneumonia, no suspicious pulmonary nodule. Mild dependent bilateral lower lobe atelectasis medical and health services manager consult for discharge planning. Awaiting placement (3) Hyperglycemia Current Visit: Yes Status: Acute Assessment and plan: Likely secondary to steroid therapy will closely monitor HbA1C: 5.4 (4) Abdominal pain Current Visit: Yes Status: Acute Assessment and plan: Likely musculoskeletal pain meds prn Qualifiers: Abdominal location: right lower quadrant Qualified Code(s): R10.31 - Right lower quadrant pain (5) Anxiety Current Visit: Yes Status: Acute Assessment and plan: Supportive care. She takes PRN Clonazepam. (6) Obesity (BMI 30.0-34.9) Current Visit: Yes Status: Chronic (7) Depression Current Visit: Yes Status: Chronic Assessment and plan: continue home medications Qualifiers: Depression Type: unspecified Qualified Code(s): F32.9 - Major depressive disorder, single episode, unspecified - Subjective Interval history: Patient seen and examined at bedside. REsting in bed. States she is not able to go back home due to unsafe conditions due to which clinical social worker love is requested for placement. - Constitutional Vitals: Temp Pulse Resp BP Pulse Ox 97.9 F 71 20 117/74 92 L 06/21/16 11:48 06/21/16 11:48 06/21/16 11:48 06/21/16 11:48 06/21/16 11:48 General appearance: Present: A&O X 3, no acute distress, obese, answers questions appropriately - Head Head exam: Present: atraumatic, normocephalic - Eye Eye exam: Present: PERRL, conjuntiva pink, sclera anicteric - Respiratory Respiratory exam: Present: CTAB. Absent: respiratory distress, wheezes - Cardiovascular Cardiovascular exam: Present: RRR, +S1, +S2 - GI/Abdominal GI/Abdominal exam: Present: distended (obese), normal bowel sounds, soft. Absent: tenderness - Extremities Exam Extremities exam: Present: warm, radial pulses palpable and symetrical. Absent : calf tenderness, pedal edema, tenderness - Neurological Exam Neurological exam: Present: alert, oriented X3 - Psychiatric Psychiatric exam: Present: normal affect, normal mood Internal Medicine: Result - Labs CBC & Chem 7: 06/21/16 03:41 06/21/16 03:41 Labs: Short CBC 06/21/16 Range/Units 03:41 WBC 8.3 (4.3-11.1) K/mcL Hgb 12.8 (11.5-15.4) g/dL Hct 40.5 (35.3-44.9) % Plt Count 248 (140-400) K/mcL Neutrophils # 6.1 (1.6-8.9) K/mcL BMP 06/21/16 03:41 Sodium 140 Potassium 4.4 Chloride 100 Carbon Dioxide 27 BUN 19 Creatinine 0.67 Glucose 144 H Calcium 9.2 - Impressions Impressions Chest CT 06/21/16 07:30 IMPRESSION: No evidence of pneumonia. No suspicious pulmonary nodule. Mild dependent bilateral lower lobe atelectasis. D/ / 06/21/2016 08:39:17 German Avina MD / [facility] Interpreting Provider: German Avina MD Consult Discharge Plan - Plan Referrals: Nhi Sexton CNP [Primary Care Provider] - 06/26/16 9:45 am
[2016-06-21] MEDS: levoFLOXacin 750 MG TABLET PO SCH (20:54)
[2016-06-22] MEDS: traZODone 50 MG TABLET PO PRN (00:03)
[2016-06-22] MEDS: Ipratropium/Albuterol Neb 3 ML IH SCH ×4 (03:24→21:32)
[2016-06-22 05:56] LABS: Basophils % 0.3 %; Hematocrit 38.6 % (35.3-44.9); Hemoglobin 12.4 g/dL (11.5-15.4); Immature Granulocytes % 2.2 % (0-4); Lymphocytes # 1.7 K/mcL (0.6-4.6); Lymphocytes % 23.1 %; Mean Corpuscular HGB Conc 32.1 g/dL (31.6-35.5); Mean Corpuscular Hemoglobin 25.2 pg (28.0-33.3); Mean Corpuscular Volume 78.3 fL (83.0-100.0); Mean Platelet Volume 10.1 fL (9.4-12.4); Monocytes # 0.4 K/mcL (0.0-1.3); Monocytes % 5.1 %; Neutrophils # 5.1 K/mcL (1.6-8.9); Platelet Count 200 K/mcL (140-400); Red Blood Count 4.93 M/mcL (3.82-4.97); Red Cell Distribution Width 23.7 % (11.5-14.5); Segmented Neutrophils % 69.3 %
[2016-06-22 06:13] LABS: BUN/Creatinine Ratio 27 (6-26); Blood Urea Nitrogen 17 mg/dL (7-20); Calcium 9.2 mg/dL (8.6-10.8); Carbon Dioxide 28 mEq/L (19-29); Chloride 101 mEq/L (98-109); Glucose 124 mg/dL (70-99); Magnesium 2.6 mg/dL (1.6-2.6); Osmolality,Calculated 291 (280-300); Phosphorous 4.5 mg/dL (2.3-4.7); Potassium 4.5 mEq/L (3.5-4.5); Sodium 139 mEq/L (136-145); eGFR For African Americans > 60 (> 60); eGFR For Non-African Americans > 60 (> 60)
[2016-06-22 06:24] LABS: Anisocytosis 2+ (Not Present); Large Platelets Present (Not Present); Platelet Estimate Normal (Normal); Reactive Lymphocytes Present (Not Present)
[2016-06-22] MEDS: Nicotine 21 MG PATCH.TD24 TD SCH (08:05)
[2016-06-22] MEDS: MethylPREDNISolone 40 MG/ML VIAL IVP SCH (08:06)
[2016-06-22] MEDS: OXcarbazepine 150 MG TABLET PO SCH ×2 (08:06→20:33)
[2016-06-22] MEDS: *HR* Heparin 5,000 UNIT/ML VIAL SQ SCH ×3 (08:06→22:40)
[2016-06-22] MEDS: *HR* HYDROcodone/Acet 5/325 mg TABLET PO PRN ×3 (08:07→20:32)
[2016-06-22] MEDS: Venlafaxine XR (24 HR) 75 MG CAP.ER.24H PO SCH (08:07)
[2016-06-22] MEDS: Magnesium Oxide 400 MG TABLET PO SCH ×2 (08:07→20:32)
[2016-06-22] MEDS: Nystatin Cream 15 GM TUBE TP SCH ×3 (08:08→20:35)
[2016-06-22] MEDS: Pregabalin 75 MG CAPSULE PO SCH ×2 (08:08→20:33)
--- NOTE | 2016-06-22 10:35 | Physician Discharge Referral ---
ExtendedCare Referral Info Transfer To: [facility] Institutional Level of Care: Intermediate - MR - Diagnosis (1) Respiratory failure with hypoxia Priority: Primary Status: Acute (2) Acute exacerbation of chronic obstructive airways disease Priority: Primary Status: Acute (3) Hyperglycemia Priority: Secondary Status: Acute (4) Abdominal pain Priority: Secondary Status: Acute (5) Anxiety Priority: Secondary Status: Chronic (6) Obesity (BMI 30.0-34.9) Priority: Secondary Status: Chronic (7) Depression Priority: Secondary Status: Chronic - Transfer Medications Home Medications: Albuterol Sulfate [Ventolin Hfa] 2 puff IH Q4-6H PRN 06/16/16 [History] Budesonide/Formoterol 160/4.5 [Symbicort 160/4.5] 2 puff IH BIDR 06/16/16 [ History] Cholecalciferol (D-3) [Vitamin D] 2,000 unit PO DAILY 06/16/16 [History] ClonazePAM [Klonopin] 1 mg PO TID PRN 06/16/16 [History] Dexlansoprazole [Dexilant] 60 mg PO DAILY 06/16/16 [History] Dicyclomine [Bentyl] 40 mg PO QID 06/16/16 [History] Ibuprofen [Motrin] 400 mg PO Q6H PRN 06/16/16 [History] Ipratropium/Albuterol Neb [Duoneb] 3 ml IH Q6H PRN 06/16/16 [History] Magnesium Oxide [Mag-Ox] 400 mg PO BID 06/16/16 [History] Methocarbamol [Robaxin] 1,000 mg PO QID PRN 06/16/16 [History] Nicotine Patch [Nicoderm] 21 mg TD DAILY 06/16/16 [History] Oxcarbazepine 300 mg PO QAM 06/16/16 [History] Oxcarbazepine 600 mg PO HS 06/16/16 [History] Pregabalin [Lyrica] 75 mg PO BID 06/16/16 [History] Trazodone HCl 50 mg PO HS PRN 06/16/16 [History] Venlafaxine HCl [Venlafaxine HCl ER] 75 mg PO DAILY 06/16/16 [History] Ferrous Sulfate 325 mg PO BID 06/17/16 [History] Allergies/Adverse Reactions: Allergies Enoxaparin [From Lovenox] Allergy (Verified 06/16/16 19:32) Hives Varenicline [From Chantix] Adverse Reaction (Verified 06/16/16 19:32) Hallucinating - Respiratory Orders Smoking Cessation: Smoking cessation has been advised. For more information, call the [place] Tobacco Quit Line at 3-581-AFXU-NOW. CERTIFICATION: I certify that the transfer of the above named patient to an Extended Care Facility is necessary for the continuing treatment of the diagnosis listed. The above information is true and accurate reflection of patient's current condition. Confidential - Redisclosure prohibited without a patient's written consent.
[2016-06-22] MEDS: Budesonide/Formoterol 160/4.5 MDI IH SCH ×2 (11:48→21:32)
--- NOTE | 2016-06-22 17:22 | Internal Med Progress Note ---
Date of Encounter: 06/22/16 Time of Encounter: 17:20 - Assessment and plan (1) Respiratory failure with hypoxia Current Visit: Yes Status: Acute Assessment and plan: Improving Wean oxygen as able. Awaiting 6 minute walk test to see if patient qualifies for home oxygen Qualifiers: Chronicity: acute Qualified Code(s): J96.01 - Acute respiratory failure with hypoxia (2) Acute exacerbation of chronic obstructive airways disease Current Visit: Yes Status: Acute Assessment and plan: Titrate steroid therapy (changed to Prednisone 40mg PO qd) Continue bronchodilator support continue O2 supplementation as needed monitor O2 sat, goal O2 sat: 89-92% CT chest: No evidence of pneumonia, no suspicious pulmonary nodule. Mild dependent bilateral lower lobe atelectasis creative services director consult for discharge planning. Awaiting placement (3) Hyperglycemia Current Visit: Yes Status: Acute Assessment and plan: Likely secondary to steroid therapy will closely monitor HbA1C: 5.4 (4) Abdominal pain Current Visit: Yes Status: Acute Qualifiers: Abdominal location: right lower quadrant Qualified Code(s): R10.31 - Right lower quadrant pain (5) Anxiety Current Visit: Yes Status: Chronic Assessment and plan: Supportive care. She takes PRN Clonazepam. (6) Obesity (BMI 30.0-34.9) Current Visit: Yes Status: Chronic (7) Depression Current Visit: Yes Status: Chronic Assessment and plan: continue home medications Qualifiers: Depression Type: unspecified Qualified Code(s): F32.9 - Major depressive disorder, single episode, unspecified - Subjective Interval history: Patient seen and examined at bedside. REsting in bed. States she is not able to go back home due to unsafe conditions due to which high school social science teacher love is requested for placement. No overnight issues reported. - Constitutional Vitals: Temp Pulse Resp BP Pulse Ox 98.0 F 69 16 112/68 92 L 06/22/16 15:46 06/22/16 15:46 06/22/16 16:19 06/22/16 15:46 06/22/16 16:19 General appearance: Present: A&O X 3, no acute distress, obese, answers questions appropriately - Head Head exam: Present: atraumatic, normocephalic - Eye Eye exam: Present: conjuntiva pink, sclera anicteric - Respiratory Respiratory exam: Present: CTAB. Absent: respiratory distress, wheezes - Cardiovascular Cardiovascular exam: Present: RRR, +S1, +S2 - GI/Abdominal GI/Abdominal exam: Present: normal bowel sounds, soft. Absent: tenderness - Extremities Exam Extremities exam: Present: warm, radial pulses palpable and symetrical. Absent : calf tenderness, pedal edema, tenderness - Neurological Exam Neurological exam: Present: alert, oriented X3 - Psychiatric Psychiatric exam: Present: normal affect, normal mood Internal Medicine: Result - Labs CBC & Chem 7: 06/22/16 04:53 06/22/16 04:53 Labs: Short CBC 06/22/16 Range/Units 04:53 WBC 7.4 (4.3-11.1) K/mcL Hgb 12.4 (11.5-15.4) g/dL Hct 38.6 (35.3-44.9) % Plt Count 200 (140-400) K/mcL Neutrophils # 5.1 (1.6-8.9) K/mcL BMP 06/22/16 04:53 Sodium 139 Potassium 4.5 Chloride 101 Carbon Dioxide 28 BUN 17 Creatinine 0.64 Glucose 124 H Calcium 9.2 Consult Discharge Plan - Plan Referrals: Nhi Sexton CNP [Primary Care Provider] - 06/26/16 9:45 am
[2016-06-22] MEDS: clonazePAM 1 MG TABLET PO PRN ×2 (17:51→23:29)
[2016-06-22] MEDS: levoFLOXacin 750 MG TABLET PO SCH (20:32)
[2016-06-23] MEDS: *HR* Heparin 5,000 UNIT/ML VIAL SQ SCH ×4 (00:34→16:48)
[2016-06-23] MEDS: *HR* HYDROcodone/Acet 5/325 mg TABLET PO PRN ×3 (04:16→21:13)
[2016-06-23] MEDS: Ipratropium/Albuterol Neb 3 ML IH SCH ×4 (04:34→22:41)
[2016-06-23 05:32] LABS: Basophils # 0.1 K/mcL (0.0-0.2); Basophils % 0.4 %; Eosinophils # 0.1 K/mcL (0.0-0.6); Eosinophils % 0.4 %; Hematocrit 41.4 % (35.3-44.9); Hemoglobin 12.8 g/dL (11.5-15.4); Immature Granulocytes % 2.7 % (0-4); Lymphocytes % 43.7 %; Mean Corpuscular HGB Conc 30.9 g/dL (31.6-35.5); Mean Corpuscular Hemoglobin 24.6 pg (28.0-33.3); Mean Corpuscular Volume 79.6 fL (83.0-100.0); Mean Platelet Volume 9.9 fL (9.4-12.4); Monocytes # 0.9 K/mcL (0.0-1.3); Monocytes % 7.6 %; Neutrophils # 5.2 K/mcL (1.6-8.9); Platelet Count 234 K/mcL (140-400); Red Cell Distribution Width 23.7 % (11.5-14.5); Segmented Neutrophils % 45.2 %
[2016-06-23 05:38] LABS: BUN/Creatinine Ratio 34 (6-26); Blood Urea Nitrogen 24 mg/dL (7-20); Calcium 8.5 mg/dL (8.6-10.8); Carbon Dioxide 29 mEq/L (19-29); Chloride 99 mEq/L (98-109); Glucose 80 mg/dL (70-99); Magnesium 2.3 mg/dL (1.6-2.6); Osmolality,Calculated 293 (280-300); Phosphorous 4.5 mg/dL (2.3-4.7); Potassium 3.9 mEq/L (3.5-4.5); Sodium 140 mEq/L (136-145); eGFR For African Americans > 60 (> 60); eGFR For Non-African Americans > 60 (> 60)
[2016-06-23 06:13] LABS: Anisocytosis 2+ (Not Present); Platelet Estimate Normal (Normal)
[2016-06-23] MEDS: Pregabalin 75 MG CAPSULE PO SCH ×2 (09:16→21:13)
[2016-06-23] MEDS: OXcarbazepine 150 MG TABLET PO SCH ×2 (09:16→21:15)
[2016-06-23] MEDS: Magnesium Oxide 400 MG TABLET PO SCH ×2 (09:16→21:13)
[2016-06-23] MEDS: Nystatin Cream 15 GM TUBE TP SCH ×3 (09:17→21:12)
[2016-06-23] MEDS: clonazePAM 1 MG TABLET PO PRN ×3 (09:17→21:16)
[2016-06-23] MEDS: Venlafaxine XR (24 HR) 75 MG CAP.ER.24H PO SCH (09:17)
[2016-06-23] MEDS: Nicotine 21 MG PATCH.TD24 TD SCH (09:19)
[2016-06-23] MEDS: Budesonide/Formoterol 160/4.5 MDI IH SCH ×2 (10:15→22:41)
--- NOTE | 2016-06-23 15:25 | Internal Med Progress Note ---
Date of Encounter: 06/23/16 Time of Encounter: 15:23 - Assessment and plan (1) Respiratory failure with hypoxia Current Visit: Yes Status: Acute Assessment and plan: Improving Wean oxygen as able. Patient qualified for home oxygen, social media senior associate consultation requested for arrangement of home oxygen prior to discharge Qualifiers: Chronicity: acute Qualified Code(s): J96.01 - Acute respiratory failure with hypoxia (2) Acute exacerbation of chronic obstructive airways disease Current Visit: Yes Status: Acute Assessment and plan: Titrate steroid therapy (continue to Prednisone 40mg PO qd) Continue bronchodilator support continue O2 supplementation as needed monitor O2 sat, goal O2 sat: 89-92% CT chest: No evidence of pneumonia, no suspicious pulmonary nodule. Mild dependent bilateral lower lobe atelectasis clinical services consultant consult for discharge planning. Likely d/c in am (3) Hyperglycemia Current Visit: Yes Status: Acute Assessment and plan: Likely secondary to steroid therapy will closely monitor HbA1C: 5.4 (4) Abdominal pain Current Visit: Yes Status: Acute Assessment and plan: Likely musculoskeletal pain meds prn Qualifiers: Abdominal location: right lower quadrant Qualified Code(s): R10.31 - Right lower quadrant pain (5) Anxiety Current Visit: Yes Status: Chronic Assessment and plan: Supportive care. She takes PRN Clonazepam. (6) Obesity (BMI 30.0-34.9) Current Visit: Yes Status: Chronic (7) Depression Current Visit: Yes Status: Chronic Assessment and plan: continue home medications Qualifiers: Depression Type: unspecified Qualified Code(s): F32.9 - Major depressive disorder, single episode, unspecified (8) DVT prophylaxis Current Visit: Yes Status: Acute Assessment and plan: Heparin SQ - Subjective Interval history: Patient seen and examined at bedside. REsting in bed. States she is not able to go back home due to unsafe conditions due to which social media senior associate love is requested for placement. Unable to get insurance approval for housing placement and patient states she does not have a heat furnace at home which will not be installed until tomorrow due to which she cannot go home. she states she has no where else go. Discharge pending resolution of social issues regarding discharge planning. No overnight issues reported. - Constitutional Vitals: Temp Pulse Resp BP Pulse Ox 98.2 F 79 15 101/63 92 L 06/23/16 14:52 06/23/16 14:52 06/23/16 14:52 06/23/16 14:52 06/23/16 14:52 General appearance: Present: A&O X 3, no acute distress, obese, answers questions appropriately - Head Head exam: Present: atraumatic, normocephalic - Respiratory Respiratory exam: Present: CTAB. Absent: accessory muscle use, rales, rhonchi, wheezes - Cardiovascular Cardiovascular exam: Present: RRR, +S1, +S2. Absent: diastolic murmur, gallop, rubs, systolic murmur - GI/Abdominal GI/Abdominal exam: Present: normal bowel sounds, soft, no peritoneal signs. Absent: distended, tenderness - Extremities Exam Extremities exam: Present: warm, radial pulses palpable and symetrical. Absent : calf tenderness, cyanotic, pedal edema - Neurological Exam Neurological exam: Present: CN II-XII intact, oriented X3, no focal deficits. Absent: pronater drift, facial droop, speech deficit - Psychiatric Psychiatric exam: Present: normal affect, normal mood Internal Medicine: Result - Labs CBC & Chem 7: 06/23/16 04:57 06/23/16 04:57 Labs: Short CBC 06/23/16 Range/Units 04:57 WBC 11.4 H D (4.3-11.1) K/mcL Hgb 12.8 (11.5-15.4) g/dL Hct 41.4 (35.3-44.9) % Plt Count 234 (140-400) K/mcL Neutrophils # 5.2 (1.6-8.9) K/mcL BMP 06/23/16 04:57 Sodium 140 Potassium 3.9 Chloride 99 Carbon Dioxide 29 BUN 24 H Creatinine 0.70 Glucose 80 Calcium 8.5 L - Impressions Impressions Chest CT 06/21/16 07:30 IMPRESSION: No evidence of pneumonia. No suspicious pulmonary nodule. Mild dependent bilateral lower lobe atelectasis. D/ / 06/21/2016 08:39:17 German Avina MD / [facility] Interpreting Provider: German Avina MD Consult Discharge Plan - Plan Referrals: Nhi Sexton CNP [Primary Care Provider] - 06/26/16 9:45 am
[2016-06-23] MEDS: predniSONE 20 MG TABLET PO SCH (15:30)
[2016-06-23] MEDS: levoFLOXacin 750 MG TABLET PO SCH (21:15)
[2016-06-23] MEDS: traZODone 50 MG TABLET PO PRN (21:15)
[2016-06-24 03:56] LABS: Basophils % 0.3 %; Eosinophils % 0.2 %; Hemoglobin 12.3 g/dL (11.5-15.4); Immature Granulocytes % 3.2 % (0-4); Lymphocytes # 3.5 K/mcL (0.6-4.6); Lymphocytes % 36.3 %; Mean Corpuscular HGB Conc 32.4 g/dL (31.6-35.5); Mean Corpuscular Hemoglobin 25.1 pg (28.0-33.3); Mean Corpuscular Volume 77.4 fL (83.0-100.0); Mean Platelet Volume 9.5 fL (9.4-12.4); Monocytes # 0.5 K/mcL (0.0-1.3); Neutrophils # 5.2 K/mcL (1.6-8.9); Platelet Count 221 K/mcL (140-400); Red Blood Count 4.91 M/mcL (3.82-4.97); Red Cell Distribution Width 23.6 % (11.5-14.5)
[2016-06-24 04:09] LABS: BUN/Creatinine Ratio 34 (6-26); Blood Urea Nitrogen 23 mg/dL (7-20); Calcium 8.5 mg/dL (8.6-10.8); Carbon Dioxide 26 mEq/L (19-29); Chloride 103 mEq/L (98-109); Glucose 105 mg/dL (70-99); Magnesium 2.5 mg/dL (1.6-2.6); Osmolality,Calculated 290 (280-300); Phosphorous 4.6 mg/dL (2.3-4.7); Potassium 4.3 mEq/L (3.5-4.5); Sodium 138 mEq/L (136-145); eGFR For African Americans > 60 (> 60); eGFR For Non-African Americans > 60 (> 60)
[2016-06-24 04:29] LABS: Anisocytosis 2+ (Not Present); Microcytosis Present (Not Present)
[2016-06-24 04:30] LABS: Platelet Estimate Normal (Normal); Polychromasia 1+ (Not Present)
[2016-06-24] MEDS: Ipratropium/Albuterol Neb 3 ML IH SCH ×2 (04:50→09:51)
[2016-06-24] MEDS: *HR* Heparin 5,000 UNIT/ML VIAL SQ SCH (06:28)
[2016-06-24] MEDS: Venlafaxine XR (24 HR) 75 MG CAP.ER.24H PO SCH (07:33)
[2016-06-24] MEDS: predniSONE 20 MG TABLET PO SCH (07:33)
[2016-06-24] MEDS: Magnesium Oxide 400 MG TABLET PO SCH (07:33)
[2016-06-24] MEDS: Pregabalin 75 MG CAPSULE PO SCH (07:34)
[2016-06-24] MEDS: OXcarbazepine 150 MG TABLET PO SCH (07:34)
[2016-06-24] MEDS: Nicotine 21 MG PATCH.TD24 TD SCH (07:34)
[2016-06-24] MEDS: Nystatin Cream 15 GM TUBE TP SCH (07:34)
[2016-06-24] MEDS: clonazePAM 1 MG TABLET PO PRN ×2 (07:49→14:45)
[2016-06-24] MEDS: *HR* HYDROcodone/Acet 5/325 mg TABLET PO PRN (07:49)
[2016-06-24] MEDS ORDERED: 0.9 % Sodium Chloride 250 ML IVC PRN (08:44)
[2016-06-24] MEDS ORDERED: *HR* HYDROcodone/Acet 5/325 mg TABLET PO PRN (08:44)
[2016-06-24] MEDS: Budesonide/Formoterol 160/4.5 MDI IH SCH (09:51)
[2016-06-24 11:06] VITALS: BP 105/69
--- NOTE | 2016-06-24 14:17 | Discharge Summary ---
Date of Encounter: 06/24/16 Time of Encounter: 14:13 - Discharge Diagnosis (1) Respiratory failure with hypoxia Priority: Primary Status: Resolved Qualifiers: Chronicity: acute Qualified Code(s): J96.01 - Acute respiratory failure with hypoxia (2) Acute exacerbation of chronic obstructive airways disease Priority: Primary Status: Acute (3) Hyperglycemia Priority: Secondary Status: Acute (4) Abdominal pain Priority: Secondary Status: Acute Qualifiers: Abdominal location: right lower quadrant Qualified Code(s): R10.31 - Right lower quadrant pain (5) Anxiety Priority: Secondary Status: Chronic (6) Obesity (BMI 30.0-34.9) Priority: Secondary Status: Chronic (7) Depression Priority: Secondary Status: Chronic Qualifiers: Depression Type: unspecified Qualified Code(s): F32.9 - Major depressive disorder, single episode, unspecified (8) DVT prophylaxis Priority: Secondary Status: Acute - Discharge Medications Prescriptions: PredniSONE 40 mg PO DAILY #7 tablet Home Medications: Albuterol Sulfate [Ventolin Hfa] 2 puff IH Q4-6H PRN 06/16/16 [History] Budesonide/Formoterol 160/4.5 [Symbicort 160/4.5] 2 puff IH BIDR 06/16/16 [ History] Cholecalciferol (D-3) [Vitamin D] 2,000 unit PO DAILY 06/16/16 [History] ClonazePAM [Klonopin] 1 mg PO TID PRN 06/16/16 [History] Dexlansoprazole [Dexilant] 60 mg PO DAILY 06/16/16 [History] Dicyclomine [Bentyl] 40 mg PO QID 06/16/16 [History] Ibuprofen [Motrin] 400 mg PO Q6H PRN 06/16/16 [History] Ipratropium/Albuterol Neb [Duoneb] 3 ml IH Q6H PRN 06/16/16 [History] Magnesium Oxide [Mag-Ox] 400 mg PO BID 06/16/16 [History] Methocarbamol [Robaxin] 1,000 mg PO QID PRN 06/16/16 [History] Nicotine Patch [Nicoderm] 21 mg TD DAILY 06/16/16 [History] Oxcarbazepine 300 mg PO QAM 06/16/16 [History] Oxcarbazepine 600 mg PO HS 06/16/16 [History] Pregabalin [Lyrica] 75 mg PO BID 06/16/16 [History] Trazodone HCl 50 mg PO HS PRN 06/16/16 [History] Venlafaxine HCl [Venlafaxine HCl ER] 75 mg PO DAILY 06/16/16 [History] Ferrous Sulfate 325 mg PO BID 06/17/16 [History] PredniSONE 40 mg PO DAILY #7 tablet 06/24/16 [Rx] Allergies/Adverse Reactions: Allergies Enoxaparin [From Lovenox] Allergy (Verified 06/16/16 19:32) Hives Varenicline [From Chantix] Adverse Reaction (Verified 06/16/16 19:32) Hallucinating Date of admission: 06/17/16 04:11 Primary care physician: Nhi Sexton CNP Consults: 06/18/16 18:24 Consult to Chief Executive [CONS] Routine Reason for SW Consult: Home situation. Pt states that she is now homeless d/ t land lord issues. 06/20/16 09:14 Consult to Physical Therapy [CONS] Routine Comment: Evaluate, develop and implement POC 06/20/16 09:15 Consult to Occupational Therapy [CONS] Routine Comment: Evaluate, develop and implement POC Discharging clinician: Anyi Bazan Anticipated date of discharge: 06/24/16 - Patient Status Disposition: Home, Self-Care Condition: Good Functional capacity at discharge: independent ambulation Overall status at discharge: patient is back to baseline - Discharge Instructions Follow Up With: Nhi Sexton CNP [Primary Care Provider] - 06/26/16 9:45 am Additional Instructions: Please follow up with your primary care physician within 5 days after discharge from the hospital. Please continue steroid therapy as prescribed. Please continue home oxygen as prescribed. Please resume your home medications as prescribed by her primary care physician. - Diet and Activity Activity: resume usual activities as tolerated, wear oxygen at all times Diet: low salt diet Hospital course: Ms. Duenas is a 45 year old female with past medical history anxiety, depression, fibromyalgia, and COPD who presents with a three-day history of increasing shortness of breath. Patient was admitted for management of acute respiratory distress secondary to COPD exacerbation and underlying pneumonia. Patient was started on IV steroids and IV antibiotics. Patient responded well to therapy and with oxygen supplementation support. Patient was evaluated for home oxygen and qualified for home oxygen therapy. Home oxygen therapy has been set up. Patient also complained of severe abdominal pain which was secondary to the cough she was experiencing from the underlying pneumonia. Patient's discharge was delayed due to social issues. At this time patient is hemodynamically stable and saturating well on nasal cannula. She still be discharged to home with follow-up with primary care physician. She has completed her antibiotic course while hospitalized. - Time Spent with Patient Total time spent providing and/or coordinating discharge services: Less than 30 minutes - Constitutional Vitals: Temp Pulse Resp BP Pulse Ox 98.4 F 85 15 105/69 92 L 06/24/16 11:05 06/24/16 11:05 06/24/16 11:05 06/24/16 11:05 06/24/16 11:05 General appearance: Present: A&O X 3, no acute distress, obese, answers questions appropriately - Head Head exam: Present: atraumatic, normocephalic - Eye Eye exam: Present: PERRL, conjuntiva pink, sclera anicteric - Respiratory Respiratory exam: Present: CTAB. Absent: accessory muscle use, rales, rhonchi, wheezes - Cardiovascular Cardiovascular exam: Present: RRR, +S1, +S2. Absent: diastolic murmur, gallop, rubs, systolic murmur - GI/Abdominal GI/Abdominal exam: Present: normal bowel sounds, soft, no peritoneal signs. Absent: distended, tenderness - Extremities Exam Extremities exam: Present: warm, radial pulses palpable and symetrical. Absent : calf tenderness, cyanotic, pedal edema - Neurological Exam Neurological exam: Present: alert, oriented X3 - Psychiatric Psychiatric exam: Present: normal affect, normal mood
[2016-06-24] MEDS: Methocarbamol 500 MG TABLET PO PRN (14:44)
== END 2016-06-24 15:16 | disposition home or self-care (01) | DRG 190 ==
LOC: EMEROO 18:47 → 3BNU 18:47 → SUATTDRO 06-17 04:11
PROVIDERS: ADMIT Pediatrics; ATTEND Internal Medicine